=== PATIENT | female | born 1980 | race African-American/Black ===

== ENCOUNTER 2017-11-15 13:25 | Emergency (ER) | payer OTHER ==
--- NOTE | 2017-11-15 14:38 | ED Physician Documentation ---
PD HPI URI - Stated complaint Stated Complaint: COUGH - Chief complaint Chief Complaint: Resp - History obtained from History obtained from: Patient, Family - History of Present Illness Timing - onset: How many years ago (2) Timing duration: Years (2 years, worse for past 3 weeks) Timing details: Gradual onset Pain level max: 0 Pain level now: 0 Associated symptoms: Rhinorrhea, Dry cough. No: Fever, Chills, Nasal congestion , Sinus pain, Sore throat, Swollen nodes, Productive cough, Chest pain, Dyspnea , NVD Contributing factors: No: Immunocompromised, Unimmunized, COPD / asthma Improves by: Nothing Worsened by: Other (nothing) Similar symptoms before: Diagnosis (states was diagnosed with allergies, but is not taking allergy medications. The cough waxes and wanes, sometimes fully resolves, but has been present x 2 years. No hemoptysis.) Review of Systems Constitutional: denies: Fever, Chills Throat: denies: Sore throat Cardiac: denies: Chest pain / pressure, Palpitations GI: denies: Abdominal Pain, Vomiting, Diarrhea : denies: Now EGA Skin: denies: Rash Musculoskeletal: denies: Neck pain, Back pain Neurologic: denies: Headache PD PAST MEDICAL HISTORY - Past Medical History Past Medical History: No - Past Surgical History Past Surgical History: No - Present Medications Home Medications: Ambulatory Orders Medication Instructions Recorded Confirmed Controll 11/15/17 Cetirizine [ZyrTEC] 10 mg PO DAILY #30 tablet 11/15/17 - Allergies Allergies/Adverse Reactions: Allergies Allergy/AdvReac Type Severity Reaction Status Date / Time No Known Drug Allergies Allergy Verified 07/21/14 13:08 - Social History Does the pt smoke?: No Smoking Status: Never smoker Does the pt drink ETOH?: No Does the pt have substance abuse?: No - Immunizations Immunizations are current?: Yes - POLST Patient has POLST: No PD ED PE NORMAL - Vitals Vital signs reviewed: Yes - General General: Alert and oriented X 3, No acute distress, Well developed/nourished - HEENT HEENT: PERRL, Ears normal, Moist mucous membranes, Pharynx benign - Neck Neck: Supple, no meningeal sign - Cardiac Cardiac: RRR, Strong equal pulses - Respiratory Respiratory: No respiratory distress, Clear bilaterally - Abdomen Abdomen: Soft, Non tender, Non distended - Derm Derm: Warm and dry - Extremities Extremities: No edema, No calf tenderness / cord - Neuro Neuro: Alert and oriented X 3 - Psych Psych: Normal mood, Normal affect Results - Vitals Vitals: Oxygen O2 Source Room air - Rads (name of study) cxr Radiology: Prelim report reviewed, EMP read contemporaneously, See rad report ( Normal) PD MEDICAL DECISION MAKING - ED course Complexity details: reviewed results, re-evaluated patient, considered differential, d/w patient ED course: Patient is a very pleasant 29-year-old female presents to the emergency department with 2 years worth of coughing. This is intermittent, but has been fairly steady. Likely seasonal allergies and environmental allergies. Will place on Zyrtec and see how she progresses. No acute findings on chest x-ray, this was performed given the long-standing nature of the cough and to ensure no other etiology. Patient counseled regarding signs and symptoms for which I believe and urgent re-evaluation would be necessary. Patient with good understanding of and agreement to plan and is comfortable going home at this time This document was made in part using voice recognition software. While efforts are made to proofread this document, sound alike and grammatical errors may occur. Departure - Departure Disposition: 01 Home, Self Care Clinical Impression: Cough Condition: Good Instructions: ED Cough Chronic Cause Unkn Follow-Up: Bea Schmitz ARNP [Primary Care Provider] - Within 1 week Prescriptions: Cetirizine [ZyrTEC] 10 mg PO DAILY #30 tablet Comments: Try the Zyrtec at home and see if this helps your cough. Return if you worsen. Your x-ray is normal today. Discharge Date/Time: 11/15/17 15:58
--- NOTE | 2017-11-15 15:01 | XRAY Preliminary Report ---
Exam: XR CHEST 2 VIEW X-RAY IMPRESSION: No focal consolidation. [facility] SITE ID: [id number]
--- NOTE | 2017-11-15 15:02 | XRAY Report ---
EXAM: CHEST RADIOGRAPHY EXAM DATE: 11/15/2017 02:50 PM. CLINICAL HISTORY: Cough x 2 years. COMPARISON: None. TECHNIQUE: 2 views. FINDINGS: Lungs/Pleura: No focal consolidation. Mediastinum: Heart and mediastinal contours are unremarkable. Other: None. IMPRESSION: No focal consolidation. [facility] Referring Provider Line: [phone] SITE ID: [id number]
[2017-11-15 15:56] VITALS: BP 129/85
== END 2017-11-15 15:58 | disposition home or self-care (01) ==
LOC: ED 13:25
DX: R05 Cough (principal); J34.89 Other specified disorders of nose and nasal sinuses
CPT/HCPCS: 71046; 99283

== ENCOUNTER 2019-02-08 13:12 | Outpatient (CLI) | payer OTHER ==
[2019-02-08] MEDS ORDERED: ALBUTEROL NEB 2.5 MG/3 ML INH SCH (13:20)
== END 2019-02-08 13:13 | disposition home or self-care (01) ==
LOC: RT 13:12
PROVIDERS: ATTEND Family Medicine
DX: R05 Cough (principal)
CPT/HCPCS: 94060

== ENCOUNTER 2019-10-30 11:51 | Emergency (ER) | payer OTHER ==
[2019-10-30 12:28] LABS: BASOPHILS % (AUTO) 0.7 %; EOSINOPHILS % (AUTO) 0.7 %; HGB - HEMOGLOBIN 13.2 g/dL (12.0-16.0); LYMPHOCYTES # (AUTO) 1.8 10^3/uL (1.5-3.5); LYMPHOCYTES % (AUTO) 31.6 %; MEAN CORPUSCULAR HEMOGLOBIN 29.4 pg (27.0-31.0); MEAN CORPUSCULAR HGB CONC 32.5 g/dL (32.0-36.0); MEAN CORPUSCULAR VOLUME 90.4 fL (81.0-99.0); MEAN PLATELET VOLUME 9.8 fL (7.9-10.8); MONOCYTES # (AUTO) 0.3 10^3/uL (0.0-1.0); MONOCYTES % (AUTO) 5.2 %; NEUTROPHILS # (AUTO) 3.4 10^3/uL (1.5-6.6); NEUTROPHILS % (AUTO) 61.4 %; PLT - PLATELET COUNT 244 10^3/uL (130-450); RED BLOOD COUNT 4.49 10^6/uL (4.20-5.40); RED CELL DISTRIBUTION WIDTH 12.9 % (12.0-15.0); WHITE BLOOD COUNT 5.6 x10^3/uL (4.8-10.8)
[2019-10-30 12:35] LABS: ALBUMIN 4.3 g/dL (3.2-5.5); ALBUMIN/GLOBULIN RATIO 1.5 (1.0-2.2); BILIRUBIN,TOTAL 0.7 mg/dL (0.2-1.0); CREATININE 0.9 mg/dL (0.4-1.0); TOTAL PROTEIN 7.2 g/dL (6.7-8.2)
[2019-10-30 13:03] LABS: BILIRUBIN,URINE NEGATIVE (NEGATIVE); GLUCOSE, URINE (UA) NEGATIVE (NEGATIVE); KETONES,URINE (UA) NEGATIVE (NEGATIVE); LEUKOCYTE ESTERASE, URINE NEGATIVE (NEGATIVE); NITRITE,URINE NEGATIVE (NEGATIVE); OCCULT BLOOD,URINE TRACE-INTA (NEGATIVE); PROTEIN,URINE NEGATIVE (NEGATIVE); UROBILINOGEN,URINE 0.2 (NORMAL) E.U./dL (NORMAL)
[2019-10-30] MEDS ORDERED: LIDOCAINE VISCOUS 2% 15 ML UDC MM STA (13:04)
[2019-10-30] MEDS ORDERED: MAG HYDROX/AL HYDROX/SIMETH 30 ML UDC PO STA (13:04)
[2019-10-30 13:05] LABS: CLARITY,URINE CLEAR (CLEAR)
--- NOTE | 2019-10-30 13:05 | ED Physician Documentation ---
PD HPI ABD PAIN - Stated complaint Stated Complaint: ABD PX - Chief complaint Chief Complaint: Abd Pain - History obtained from History obtained from: Patient - History of Present Illness Timing - onset: Last night (She has had severe intermittent upper abdominal pain in the center nonradiating since last night associated with very mild nausea. She is never had this before. No history of abdominal surgeries or ulcers. Does not seem to be related to eating.) Review of Systems Ten Systems: 10 systems reviewed and negative Constitutional: denies: Fever, Chills Cardiac: denies: Chest pain / pressure, Palpitations Respiratory: denies: Dyspnea, Cough PD PAST MEDICAL HISTORY - Past Medical History Past Medical History: No - Past Surgical History Past Surgical History: No - Present Medications Home Medications: Ambulatory Orders Medication Instructions Recorded Confirmed Controll 11/15/17 Famotidine [Pepcid] 20 mg PO BID #60 tablet 10/30/19 Omeprazole 20 mg PO DAILY #30 capsule. 10/30/19 - Allergies Allergies/Adverse Reactions: Allergies Allergy/AdvReac Type Severity Reaction Status Date / Time No Known Drug Allergies Allergy Verified 10/30/19 12:05 - Social History Does the pt smoke?: No Smoking Status: Never smoker Does the pt drink ETOH?: No Does the pt have substance abuse?: No - Immunizations Immunizations are current?: Yes - POLST Patient has POLST: No PD ED PE NORMAL - Vitals Vital signs reviewed: Yes - General General: Alert and oriented X 3, Other (She appears uncomfortable) - HEENT HEENT: PERRL, EOMI - Neck Neck: Supple, no meningeal sign, No bony TTP - Cardiac Cardiac: RRR, No murmur - Respiratory Respiratory: No respiratory distress, Clear bilaterally - Abdomen Abdomen: Normal bowel sounds, Soft, Other (Mild tenderness in the epigastrium without surgical signs, no focal right upper quadrant tenderness. Negative Ortega sign.) - Back Back: No CVA TTP, No spinal TTP - Derm Derm: Normal color, Warm and dry - Neuro Neuro: Alert and oriented X 3, Normal speech Results - Vitals Vitals: Vital Signs - 24 hr 10/30/19 12:02 Temperature 36.6 C Heart Rate 80 Respiratory 18 Rate Blood Pressure 132/88 H O2 Saturation 98 Oxygen O2 Source Room air - Labs Labs: Laboratory Tests 10/30/19 10/30/19 10/30/19 12:18 12:18 12:57 WBC 5.6 RBC 4.49 Hgb 13.2 Hct 40.6 MCV 90.4 MCH 29.4 MCHC 32.5 RDW 12.9 Plt Count 244 MPV 9.8 Neut # (Auto) 3.4 Lymph # (Auto) 1.8 Schuyler # (Auto) 0.3 Eos # (Auto) 0.0 Baso # (Auto) 0.0 Absolute Nucleated RBC 0.00 Nucleated RBC % 0.0 Sodium 137 Potassium 4.1 Chloride 103 Carbon Dioxide 24 Anion Gap 10.0 BUN 10 Creatinine 0.9 Estimated GFR (MDRD) 84 L Glucose 118 H Calcium 9.0 Total Bilirubin 0.7 AST 13 ALT 12 Alkaline Phosphatase 40 L Total Protein 7.2 Albumin 4.3 Globulin 2.9 Albumin/Globulin Ratio 1.5 Lipase 29 Urine Color YELLOW Urine Clarity CLEAR Urine pH 6.0 Ur Specific [place] 1.020 Urine Protein NEGATIVE Urine Glucose (UA) NEGATIVE Urine Ketones NEGATIVE Urine Occult Blood TRACE-INTA Urine Nitrite NEGATIVE Urine Bilirubin NEGATIVE Urine Urobilinogen 0.2 (NORMAL) Ur Leukocyte Esterase NEGATIVE Ur Microscopic Review NOT INDICATED Urine Culture Comments NOT INDICATED Urine HCG, Qual NEGATIVE PD MEDICAL DECISION MAKING - ED course ED course: 39-year-old woman with acute epigastric pain since last night, seems like ulcer disease and after the administration of a GI cocktail was pain-free and nontender. Departure - Departure Disposition: 01 Home, Self Care Clinical Impression: Gastritis Qualifiers: Gastritis type: unspecified gastritis Chronicity: acute Gastritis bleeding: without bleeding Qualified Code(s): K29.00 - Acute gastritis without bleeding Condition: Good Record reviewed to determine appropriate education?: Yes Instructions: ED PUD Vs Gastritis Prescriptions: Famotidine [Pepcid] 20 mg PO BID #60 tablet Omeprazole 20 mg PO DAILY #30 capsule. Comments: You presented today for epigastric abdominal pain, and had complete relief with a GI cocktail. As discussed this is consistent with ulcer disease or gastritis. The medication should help with that. Return for new or worsening symptoms. If you are having persistent issues, follow-up with your doctor, consider referral for upper endoscopy.
[2019-10-30 13:06] LABS: HCG UR QUAL NEGATIVE
[2019-10-30] MEDS ORDERED: FAMOTIDINE 20 MG TABLET PO STA (13:28)
[2019-10-30 13:38] VITALS: BP 137/88
== END 2019-10-30 13:37 | disposition home or self-care (01) ==
LOC: ED 11:51
DX: K29.00 Acute gastritis without bleeding (principal)
CPT/HCPCS: 36415; 80053; 81003; 81025; 83690; 85025; 99283; 99284; A9270; 81001; 87086

== ENCOUNTER 2020-04-24 12:34 | Outpatient (CLI) | payer OTHER ==
--- NOTE | 2020-04-26 12:46 | MRI Report ---
PROCEDURE: Knee LT W/O INDICATIONS: LT KNEE PAIN TECHNIQUE: Noncontrast sagittal PD fast spin echo and T2 fast spin echo with fat saturation, sagittal 3-D gradie nt sequence with fat saturation; coronal T1 spin echo and PD fast spin echo with fat saturation, and axial PD fast spin echo with fat saturation through the knee. COMPARISON: None. FINDINGS: Image quality: Excellent. Menisci: The medial and lateral menisci demonstrate normal morphology and internal signal. The meni scal root ligaments appear intact. Cruciate ligaments: The anterior and posterior cruciate ligaments appear intact. Medial structures: The medial collateral ligament appears intact. The posterior oblique ligament, s emimembranosus tendon insertions, and oblique popliteal ligament, and meniscocapsular junction appear intact. Visualized portions of the pes anserinus tendons appear normal. No abnormal bursal fluid. Lateral structures: The lateral collateral ligament, long and short heads of the biceps femoris tend on appear intact. The popliteus tendon appears normal; the popliteofibular ligament appears intact. The posterosuperior and anteroinferior popliteomeniscal fascicles appear intact. The arcuate and fa bellofibular ligaments appear intact, around the lateral inferior geniculate artery. Iliotibial band appears normal. Anterior structures: The quadriceps and patellar tendons appear intact. Patellar alignment is yohana l. No femoral trochlear dysplasia or ventral trochlear prominence. No edema in the infrapatellar fa t pad. Bones and cartilage: Mild medial femoral tibial compartment joint space narrowing and low-grade chond romalacia is seen. Articulating cartilages in patellofemoral compartment and lateral femoral tibial c ompartment are intact. Joint space: There is trace amount of joint fluid. No Argueta?s cyst. Normal appearing synovial plic ae are incidentally noted. IMPRESSION: 1. No evidence of focal meniscal tear. 2. Cruciate ligaments are intact. 3. 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 No marrow isaak a. No fracture or dislocation. Trace amount of joint fluid. Reviewed by: George Cruz MD on 04/26/2020 12:45 PM PDT Approved by: George Cruz MD on 04/26/2020 12:45 PM PDT Station ID: [id number]
== END 2020-04-24 12:35 | disposition home or self-care (01) ==
LOC: DI 12:34
PROVIDERS: ATTEND Family Medicine
DX: M17.12 Unilateral primary osteoarthritis, left knee (principal); M94.262 Chondromalacia, left knee